=== PATIENT | male | born 1995 | race Two or more races ===

== ENCOUNTER 2019-02-02 14:24 | Emergency (ER) | payer OTHER ==
[~2019-02-02] VITALS: Ht 170.2 cm; Wt 79.4 kg
== END 2019-02-02 19:15 | disposition home or self-care (01) ==
LOC: ER 14:24
DX: S30.22XA Contusion of scrotum and testes, initial encounter (principal); W22.8XXA Striking against or struck by other objects, initial encounter; Y93.89 Activity, other specified; Y92.89 Other specified places as the place of occurrence of the external cause; Y99.8 Other external cause status

== ENCOUNTER 2019-02-05 09:29 | Outpatient (CLI) | payer OTHER | END 2019-02-05 09:34 | disposition home or self-care (01) | LOC: SONOGRAMA 09:29 | DX: N18.3 Chronic kidney disease, stage 3 (moderate) (principal); R31.9 Hematuria, unspecified; R10.84 Generalized abdominal pain ==

== ENCOUNTER 2021-12-25 21:23 | Emergency (ER) | payer OTHER ==
[~2021-12-25] VITALS: Ht 172.7 cm; Wt 86.2 kg
== END 2021-12-25 22:50 | disposition home or self-care (01) ==
LOC: ER 21:23
DX: J06.9 Acute upper respiratory infection, unspecified (principal)